=== PATIENT | female | born 1960 | race Caucasian/White ===

== ENCOUNTER 2016-12-23 12:31 | Day surgery (SDC) | payer OTHER ==
[~2016-12-23] VITALS: Ht 170.2 cm; Wt 106.9 kg
[2016-12-23] VITALS (8 sets, daily range): BP systolic 118–138; BP diastolic 72–83; PULSE 74–98; RESP 13–20; O2SAT 92–98
--- NOTE | 2016-12-23 08:19 | PCM.HPANE ---
Patient Data Surgeon Admitting Provider: Attending Provider:Jone Collins DO Primary Care Physician:July Benitez Other Provider:Carito Garcia Anesthesia Reason for Visit Left Shoulder Arthritis, Ac Joint Arthritis LEFT SHOULDER ARTHRITIS, AC JOINT ARTHRITIS Ht/WT & BMI Height (Feet): 5 Height (Inches): 7 Weight (Kilograms): 107.86 Body Mass Index 37.00 Allergies Coded Allergies: No Known Allergies (Unverified , 12/23/16) Past Anesthesia History Anesthesia History: Denies:: Abnormal Airway, Anesthesia Reactions, Difficult Intubation, Fam Anesthesia Reaction Diabetes History Hx Diabetes?: No MRSA MRSA: No Medications Hypertension Medication: No Home Meds Incl Beta Duarte: No Reported Medications Tramadol 50 Mg [id number] Mg PO Q6H PRN For Pain Ref 0 12/13/16 Lansoprazole ODT (Prevacid ODT)15 Mg [id number] Mg PO DAILY Ref 0 12/13/16 Hydrocodone-Acetaminophen 5-325 mg 1 Each Tablet1-2 Tablet PO Q4H PRN For Pain Ref 0 12/13/16 Etodolac 400 Mg [id number] Mg PO BID 12/13/16 Duloxetine 20 Mg Capsule.dr20 Mg PO BID Ref 0 12/13/16 History History of ENT Problems?: Yes HEENT History: Denies:: Abnormal Airway Cataracts Difficult Intubation Dysphagia Glaucoma Hearing Problem Sinus Problem TMJ Denture Type: Full- Upper Teeth Condition: Within Normal Limits Hx of Heart Problems?: Yes Cardiovascular History: Positive for:: Cardiac Surgery (stent peripheral artery) Chest Pain Denies:: AICD Edema Heart Murmur Hypertension Irregular Heartbeat Pacemaker Peripheral Vascular Hx of Respiratory Problem?: No Respiratory History: Denies:: Asthma COPD Emphysema Oxygen Administration Pneumonia Tuberculosis Use of C-PAP Machine Hx Neurologic Problems?: No Neurological History: Denies:: CVA Headaches (migraine type headaches) Multiple Sclerosis Parkinson's Disease Seizures TIA Hx of GI Problems?: Yes Hx of Problems?: No Genitourinary History: Denies:: Kidney Stones Urinary Tract Infection Female Hx: Denies:: Currently (tubal ) Problems with Breasts? Skin History: Denies:: History Skin Disorders? Pressure Ulcers Hx Musculoskeletal Problems?: Yes Musculoskeletal History: Positive for:: Fibromyalgia Musculoskeletal Trauma (left shoulder current admission problem) Osteoarthritis Denies:: Back Injury Joint Replacement Myasthenia Gravis Systemic Lupus Hx of Psycho/Social Problems?: Yes Psycho Social History: Positive for:: Hx Depression Hx Surgeries?: Yes (tubal, darell) Hx Any Other Health Problems?: Yes Other History: Denies:: Cancer Thyroid Disease History Blood Transfusions: Positive for:: Accept Blood Products? Denies:: Blood Transfusions Hx Diabetes: No Hx Alcohol Use: NoHx Substance Use: No Smoking Status: Former Smoker Have You Smoked inLast 12 mo: No Stop/Bang S-Snoring: Do You Snore Loudly: No T-Tired: feel tired, fatigued: Yes O-Obsered: Observed not breath: No P-Blood Pressure: treated: No B- Body Mass Index > 35 kg/m2: Yes A- Age over 50: Yes N- Neck Large Circumference: Yes G- Gender Male: No GREG Total Score: 4 Risk Assessment Category Category 1A: Patient has history of documented sleep apnea, and HAS NOT received any narcotic, sedative or anesthesia administration during this stay. Category 1B: Patient has history of documented sleep apnea, and HAS received any narcotic , sedative or anesthesia administration during this stay Category 2: Patient has SUSPECTED Obstructive Sleep Apnea, and HAS received any narcotic , sedative or anesthesia administration during this stay. Category 3: Patient has SUSPECTED Obstructive Sleep Apnea and HAS NOT received narcotic, sedative or anesthesia administration during this stay. Category 4: Outpatient in Procedural Areas with known sleep apnea or who screen positive for High Risk via the STOP/BANG questionnaire. Exam Exam General Appearance: Alert, Oriented X3, Cooperative HEENT/AIRWAY: MP 2, Neck Movement (from), Mouth Opening (wnol) Lungs: Clear to Auscultation Heart: Exam Unremarkable Plan Impression Patient chart reviewed, patient interviewed and anesthestic plan with risks, benefits, and alternatives discussed, and informed consent obtained. ASA Physical Status: ASA2 Mod Systemic Disease Anesthetic Plan: GA Bene/Risks/Altern/Consents: Yes HP Complete Prior to Induction: Yes Oumar Rdz MD Dec 23, 2016 08:19
[~2016-12-23 12:31] MED LIST: CeFAZolin Inj 2 GM in IV Premix 1 EACH IV SCH; DULO20CA18 PO; ETOD400T PO; HYDR-4003 PO; LANS15TA3 PO; Lactated Ringer's 1,000 ML IV ONE; Lactated Ringer's 1,000 ML IV SCH; TRAM50TA2 PO; Vancomycin Inj 1,500 MG in 0.9% Sodium Chloride 500 ML IV ONE
[2016-12-23] MEDS ORDERED: Ondansetron 2 mg/mL 2 mL Inj ONE (12:32)
[2016-12-23] MEDS ORDERED: fentaNYL-PF 50 mCg/mL 2 mL Inj ONE (12:32)
[2016-12-23] MEDS ORDERED: Rocuronium 10 mg/mL 5 mL Inj ONE (12:32)
[2016-12-23] MEDS ORDERED: Propofol 10,000 mCg/mL 20 mL Inj ONE (12:32)
[2016-12-23] MEDS ORDERED: CeFAZolin 2 Gm/50 mL D5W Duplex Bag IV ONE (13:03)
[2016-12-23] MEDS ORDERED: Dexamethasone 4 mg/mL Inj IVPUSH PRN (16:00)
[2016-12-23] MEDS ORDERED: hydrALAZINE 20 mg/mL Inj IVPUSH PRN (16:00)
[2016-12-23] MEDS ORDERED: Lactated Ringer's 500 ML IV PRN (16:00)
[2016-12-23] MEDS ORDERED: fentaNYL-PF 50 mCg/mL 2 mL Inj IVPUSH PRN (16:00)
[2016-12-23] MEDS ORDERED: Phenylephrine 10,000 mCg/mL Inj IVPUSH PRN (16:00)
[2016-12-23] MEDS ORDERED: EPHEDrine Sulfate 50 mg/mL Inj IVPUSH PRN (16:00)
[2016-12-23] MEDS ORDERED: HYDROmorphone 1 mg/mL Inj IVPUSH PRN ×2 (16:00→17:40)
[2016-12-23] MEDS ORDERED: Lactated Ringer's 1,000 ML IV ONE (16:00)
[2016-12-23] MEDS ORDERED: Labetalol 5 mg/mL 20 mL Inj IV PRN (16:00)
[2016-12-23] MEDS ORDERED: Atropine 0.4 mg/mL Inj IVPUSH PRN (16:00)
[2016-12-23] MEDS ORDERED: Ondansetron 2 mg/mL 2 mL Inj IVPUSH PRN ×2 (16:00→17:40)
[2016-12-23] MEDS ORDERED: Lactated Ringer's 1,000 ML IV SCH (16:00)
[2016-12-23] MEDS ORDERED: Polyethylene Glycol (PEG) 17 Gm Powder PO PRN (17:40)
[2016-12-23] MEDS ORDERED: Magnesium Hydroxide 10 mL Oral Concentration PO PRN (17:40)
[2016-12-23] MEDS ORDERED: diphenhydrAMINE 25 mg Capsule PO PRN (17:40)
[2016-12-23] MEDS ORDERED: hydrOXYzine Pamoate 25 mg Capsule PO PRN (17:40)
--- NOTE | 2016-12-23 18:16 | DRSVH ---
PROCEDURE: X-RAY LEFT SHOULDER, MINIMUM TWO VIEWS ([id number]) INDICATIONS: post op TECHNIQUE: 2 views of the shoulder were acquired. COMPARISON: None. FINDINGS: Bones: Shoulder arthroplasty has been performed. No fractures or dislocations. No suspicious bony l esions. Visualized ribs appear intact. Soft tissues: No suspicious soft tissue calcifications. IMPRESSION: Expected appearance following left shoulder arthroplasty. Dictated by: Karla Watson M.D. on 12/23/2016 at 18:14 Approved by: Karla Watson M.D. on 12/23/2016 at 18:15
--- NOTE | 2016-12-23 18:53 | PCM.ANEP1 ---
Post Anesthesia PACU Phase 1 Assessment Vital Signs Vital Signs Date Time Temp Pulse Resp B/P Pulse Ox O2 Delivery O2 Flow Rate FiO2 12/23/16 18:13 36.0 82 13 136/72 92 Room Air 12/23/16 18:05 86 14 127/80 92 Room Air 12/23/16 17:55 91 15 138/76 93 Room Air 12/23/16 17:48 36.2 92 17 133/75 94 Room Air 12/23/16 12:50 36.3 74 16 133/74 98 Room Air Anesthetic Administered: GA Level of Alertness: Awake, talking GIL's with Equal Strength: No Pain: No Nausea or Vomiting: No CV Function & Hydration Stable: Yes Airway Device: Oxygen Delivery: Room Air Lungs: Normal Air Movement PACU Phase 2 Assessment Complications: No Follow up Care: No Patient Instructions Provided: N/A Oumar Rdz MD Dec 23, 2016 18:53
--- NOTE | 2016-12-23 19:11 | NUR ---
POST OP Patient arrived from PACU on hospital bed. Alert and oriented. Answering all questions appropriately. Left arm in sling. Dressing to L shoulder C/D/I. Strong radial pulse on L side. Able to wiggle fingers. Denies nausea/vomiting. Oriented to room and call light. SCD's in place. Report given to [facility] shift nurse.
[2016-12-23] MEDS: Senna-Docusate 8.6-50 mg Tablet PO SCH (20:40)
[2016-12-23] MEDS: DULoxetine 20 mg DR Capsule PO SCH (20:41)
[2016-12-23] MEDS: 0.9% Sodium Chloride 1,000 ML IV SCH (20:41)
[2016-12-23] MEDS: oxyCODONE-Acetamin 5-325 mg Tablet PO PRN (23:25)
[2016-12-24] MEDS: Sodium Chloride LOK Flush 10 mL Syringe IV SCH ×2 (00:30→08:31)
[2016-12-24] MEDS: CeFAZolin Inj 2 GM in IV Premix 1 EACH IV SCH ×2 (01:59→08:31)
--- NOTE | 2016-12-24 02:19 | OP ---
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 PROCEDURE: Left shoulder resurfacing hemiarthroplasty with distal clavicle excision and biceps tenotomy. SURGEON: Jone Collins DO. ANESTHESIA: General. INDICATIONS: The patient is a 56-year-old female with left shoulder pain which has failed conservative measures and wished to proceed with shoulder surgery. We discussed treatment options for this, and she wished to proceed with a shoulder resurfacing hemiarthroplasty with distal clavicle excision and biceps tenotomy or tenodesis. We discussed the risks, benefits and possible complications of surgery. All questions were answered and she wished to proceed. A painter assistant was required for the successful completion of this procedure. PROCEDURE IN DETAIL: The patient was brought to the operating room. She was given a preoperative antibiotic and an interscalene block, as well as general anesthetic. Placed comfortably into the beach chair position. The left shoulder was sterilely prepped and draped. An incision was made over the deltopectoral interval and dissection was carefully carried through the subcutaneous tissue. Electrocautery was used for hemostasis. The deltopectoral interval was then opened with blunt dissection with the cephalic vein taken laterally. The upper portion of the pectoralis was released in order to gain exposure. The conjoined tendon was retracted medially and Kolbel type retractor was placed. A Aguilar was used to carefully dissect the soft tissue off of the inferior neck and to dissect away with blunt dissection and a sponge, the axillary nerve to protect it from harm's way. An incision was then made over the subscapularis in the mid tendinous portion leaving a cuff of tissue for repair. The shoulder was then dislocated and inspected. She was found to have significant wear and osteophytes on the humeral head. Her glenoid surface was in good condition. The osteophytes were removed and the center portion of the head was found and marked with a marking pen, and then a guide pin was introduced. Care was taken to ensure that the appropriate version was maintained. This was then over-reamed with a 48 x18 DePuy reamer. We then not removed the reamer and removed the rim of osteophytes. Placed the trial. The trial seemed to work quite nicely. Did the keel punch, irrigated, and then impacted the DePuy resurfacing hemiarthroplasty cap into position. The shoulder was then reduced, had excellent range of motion, great stability with about 50% tanslation anterior to posterior. The biceps tendon was then released off of the superior labrum. I elected not to do a tenodesis as I was concerned about potentially disrupting the blood supply to the humeral head and felt that the tenotomy should be quite acceptable in this patient as the ascending branch of the circumflex humeral vessel was overlying the biceps tendon more distally. The wound was then irrigated and closed with #2 FiberWire to repair the subscapularis. Next, the incision was extended proximally up over the AC joint, and dissection was carefully carried down over the AC joint through the capsule. Hohmann retractors were placed on either side of the distal clavicle and 1 cm distal clavicle was then resected using a small TPS saw. This wound was then irrigated and the fascia over the superior clavicle was closed with 0-Vicryl. The subcu was closed with 2-0 Vicryl. The skin was closed with running subcuticular Stratafix suture. Sterile dressings were applied. Patient tolerated the procedure well. Blood loss was 150 cc. POSTOPERATIVE PROTOCOL: Will have the patient use an arm sling for comfort, ice and elevate. Begin working on range of motion starting tomorrow with no external rotation past 0 degrees for six weeks. SUNSHINE
[2016-12-24 06:15] VITALS: BP 122/79; PULSE 94; RESP 16; O2SAT 95
[2016-12-24 06:19] LABS: BASOPHILS % (AUTO) 0.1 % (0-3); EOSINOPHILS % (AUTO) 0 % (0-5); MONOCYTES % (AUTO) 4.8 % (4-12); Mean Corpuscular Hemoglobin 28.9 pg (27.0-35.0); Mean Corpuscular Volume 87.5 fL (81-100); Platelet Count 271 bil/L (150-400)
--- NOTE | 2016-12-24 07:17 | NUR ---
Activity Patient unable to sleep throughout night, c/o mild pain once. A&O, able to make needs known. Frequent rounding for safety.
[2016-12-24 08:15] VITALS: BP 127/84; PULSE 96; RESP 16; O2SAT 95
--- NOTE | 2016-12-24 08:29 | PCM.PNORTH ---
Subjective Date of Service: Dec 24, 2016 Visit Information: Reason for Visit Left Shoulder Arthritis, Ac Joint Arthritis Surgery/Surgery Date L PRIYANKA 12/23/16 Post-Op Day # 1 Date of Admission: Hospital Day # Subjective Patient states she is not having pain when at rest but states her pain becomes quite unbearable when she is ambulating. She thinks it can be controlled well with the pain medication as well as ice. Denies nausea Postop General: No Complaints, No Shortness of Breath, No Chest Pain, Good Appetite Objective Exam Objective Patient sitting up in bed eating breakfast Vital Signs and I/O Vital Sign - Last Date Time Temp Pulse Resp B/P Pulse Ox O2 Delivery O2 Flow Rate FiO2 12/24/16 06:15 36.7 94 16 122/79 95 Room Air Intake and Output 12/23/16 12/23/16 12/24/16 Cumulative From/Thru 15:00 23:00 07:00 12/13/16 17:06 - 12/24/16 06:15 Intake Total 500 ml 1350 ml 1200 ml 3050 ml Output Total 50 ml 400 ml 450 ml Balance 500 ml 1300 ml 800 ml 2600 ml Intake Oral 1200 ml 1200 ml IV Total 500 ml 1350 ml 1850 ml Output Urine Total 400 ml 400 ml Estimated Blood Loss 50 ml 50 ml # Voids 5 5 # Bowel Movements 0 0 Lab & Micro Results Laboratory Tests Test 12/24/16 05:30 White Blood Count 14.0th/mm3 (3.8-10.1) Red Blood Count 4.57mil/mm3 (3.90-5.20) Hemoglobin 13.2g/dL (12.0-15.6) Hematocrit 40.0% (35.0-46.0) Mean Corpuscular Volume 87.5fL (81-100) Mean Corpuscular Hemoglobin 28.9pg (27.0-35.0) Mean Corpuscular Hemoglobin Concent 33.0% (32.0-37.0) Red Cell Distribution Width 13.0% (12.3-15.4) Platelet Count 271bil/L (150-400) Neutrophils (%) (Auto) 87.0% (40-74) Lymphocytes (%) (Auto) 7.9% (14-46) Monocytes (%) (Auto) 4.8% (4-12) Eosinophils (%) (Auto) 0% (0-5) Basophils (%) (Auto) 0.1% (0-3) Result Diagram: 12/24/16 0530 General Appearance: Alert, Oriented X3, Cooperative, No Acute Distress Extremities: Distal Pulses Palpable, No Compartment Syndrom Noted, Tenderness/ Swelling Noted (Mild swelling throughout fingers and hand) Postop Sensory Motor: Distal Motor Intact (able to extend, abd/adduct fingers and make a full fist), Movement in Fingers, Distal Sensation Intact, NVI Distally SURGICAL WOUND : Wound Location/Description Perioperative dressing c/d/i Sling in place Dressing & Drainage Status: Intact Activity: Activity per PT (Active assisted ROM, not external rotation past 0) Assessment & Plan Impression Postoperative day #1 Left shoulder resurfacing hemiarthroplasty with distal clavicle excision and biceps tenotomy. Problems: Plan Weightbearing: Nonweightbearing with the left upper extremity. May perform active assisted range of motion however no external rotation past 0. Patient acknowledged her understanding of these restrictions. Wound care: Keep dressing clean and dry for two days. May then remove if incision has no drainage. Shower instructions: If incision is dry, absent drainage, patient may shower with incision uncovered beginning Friday. Analgesia: Percocet 5/325 one to 2 tabs every 4-6 hours. Please take for severe pain only. Apply ice frequently throughout the day. Discharge plan: Discharge home today. Follow-up plan: In 2 weeks at [facility] with BARBER for wound check and at [address] Collins with x-rays Flori Michael PA-C Dec 24, 2016 08:29
[2016-12-24] MEDS ORDERED: Lansoprazole 30 mg ODTablet PO SCH (08:30)
[2016-12-24] MEDS: 0.9% Sodium Chloride 1,000 ML IV SCH (08:30)
[2016-12-24] MEDS: Senna-Docusate 8.6-50 mg Tablet PO SCH (08:30)
[2016-12-24] MEDS ORDERED: OXYC1TAB24 PO (08:32)
--- NOTE | 2016-12-24 08:32 | PCM.DIOPOR ---
OP Ortho Discharge Instruction Dates of Hospitalization Date of Discharge: Dec 24, 2016 Providers Admitting Physician: Primary Care Physician: July Benitez Attending Physician: Jone Collins DO Activity Activity-General: Be up and about, Ice incision 3-5 time/day for 20min Left Upper Extremity: Non-weight bearing Dressing and Incisional Care Dressing Care: Keep dressing clean, dry & intact (for 2 days) Additional Instructions Discharge Instructions Weightbearing: Nonweightbearing with the left upper extremity. May perform active assisted range of motion however no external rotation. Wound care: Keep dressing clean and dry for two days. May then remove if incision has no drainage. Shower instructions: If incision is dry, absent drainage, patient may shower with incision uncovered beginning Friday. Analgesia: Percocet 5/325 one to 2 tabs every 4-6 hours. Please take for severe pain only. Apply ice frequently throughout the day. Follow-up plan: In 2 weeks at [facility] with BARBER for wound check and at [address] Collins with x-rays Flori Michael PA-C Dec 24, 2016 08:32
[2016-12-24] MEDS: DULoxetine 20 mg DR Capsule PO SCH (08:33)
--- NOTE | 2016-12-24 08:35 | PCM.DC.ORT ---
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 Procedures Performed: Left shoulder resurfacing hemiarthroplasty with distal clavicle excision and biceps tenotomy. Hospital Course: Patient was admitted to the hospital until December 23, 2016 and underwent the above-mentioned procedure. Patient was given perioperative antibiotics. Patient tolerated the procedure well and was transferred to OS free postoperatively. Hospital course was uncomplicated. Patient performed adequately PT and was discharged home on postop day #1. Discharge Instructions: Weightbearing: Nonweightbearing with the left upper extremity. May perform active assisted range of motion however no external rotation past 0. Patient acknowledged her understanding of these restrictions. Wound care: Keep dressing clean and dry for two days. May then remove if incision has no drainage. Shower instructions: If incision is dry, absent drainage, patient may shower with incision uncovered beginning Friday. Analgesia: Percocet 5/325 one to 2 tabs every 4-6 hours. Please take for severe pain only. Apply ice frequently throughout the day. Discharge plan: Discharge home today. Follow-up plan: In 2 weeks at [facility] with BARBER for wound check and at [address] Collins with x-rays Duloxetine (Duloxetine) 20 Mg Capsule. 20 MG PO BID Etodolac (Etodolac) 400 Mg Tablet 400 MG PO BID Lansoprazole ODT (Prevacid ODT) 15 Mg Tablet 15 MG PO DAILY Tramadol (Tramadol) 50 Mg Tablet 50 MG PO Q6H PRN PRN For Pain oxyCODONE-Acetaminophen 5-325 mg (oxyCODONE-Acetaminophen 5-325 mg) 1 Each Tablet 1-2 TAB PO Q4H PRN PRN For Pain Flori Michael PA-C Dec 24, 2016 08:35
[2016-12-24] MEDS: oxyCODONE-Acetamin 5-325 mg Tablet PO PRN (08:41)
--- NOTE | 2016-12-24 09:57 | NUR ---
Evaluation completed. Please go to "Notes" then click on "Assessments and Notes" (bottom left corner of screen). Then select appropriate discipline tab on top of screen.
--- NOTE | 2016-12-24 11:23 | NUR ---
DISCHARGE Patient discharged at 1130, left with partner who is to drive her home. Patient denies nausea, chest pain, and shortness of breath. Left arm in sling, dressing c/d/i, care notes provided on shoulder care, IV catheter removed intact, personal belongings accounted for and returned to patient. Medications reviewed and new Rx provided, patient verbalized understanding. Follow up appointments (times and dates) reviewed as well as discharge care of surgery site and restrictions on activity.
== END 2016-12-24 11:15 | disposition home or self-care (01) ==
LOC: SAS 12:31 → OSC 18:29 → SAS 12-24 11:15
PROVIDERS: ATTEND Orthopaedic Surgery
DX: M19.012 Primary osteoarthritis, left shoulder (principal); M75.22 Bicipital tendinitis, left shoulder; G89.18 Other acute postprocedural pain; I73.9 Peripheral vascular disease, unspecified; K21.9 Gastro-esophageal reflux disease without esophagitis; M79.7 Fibromyalgia; M81.0 Age-related osteoporosis without current pathological fracture; F41.8 Other specified anxiety disorders; Z86.69 Personal history of other diseases of the nervous system and sense organs; Z87.891 Personal history of nicotine dependence; Z95.820 Peripheral vascular angioplasty status with implants and grafts
CPT/HCPCS: 23405; 23470; 36415; 73030; 76942; 85025; 96365; 96375; 97167; C1776; J0690; J1170; J2250; J2405; J2704; J3010; J3370; J7030; J7040; J7120; Q0177